=== PATIENT | female | born 1945 | race Asian ===

== ENCOUNTER 2020-05-08 10:40 | Emergency (ER) | payer MEDICARE, MEDICAID ==
[~2020-05-08] VITALS: Ht 148.6 cm; Wt 53.8 kg
[2020-05-08 10:57] VITALS: BP 174/70
== END 2020-05-08 11:53 | disposition home or self-care (01) ==
LOC: ER 10:40
DX: H61.21 Impacted cerumen, right ear (principal)
CPT/HCPCS: 69210; 99284

== ENCOUNTER 2023-06-23 09:05 | Emergency (ER) | payer MEDICARE, MEDICAID ==
[~2023-06-23] VITALS: Ht 154.9 cm; Wt 52.8 kg
[2023-06-23 12:01] VITALS: BP 175/75; PULSE 56; RESP 17; TEMP 97.9; O2SAT 97
[2023-06-23] MEDS ORDERED: BLEOS EACHEYE (14:56)
[2023-06-23] MEDS ORDERED: CEPH-585 PO (14:56)
== END 2023-06-23 17:21 | disposition home or self-care (01) ==
LOC: ER 09:05
DX: H01.00B Unspecified blepharitis left eye, upper and lower eyelids (principal); H01.00A Unspecified blepharitis right eye, upper and lower eyelids; Z87.81 Personal history of (healed) traumatic fracture; Z79.2 Long term (current) use of antibiotics; Z79.899 Other long term (current) drug therapy
CPT/HCPCS: 99283

== ENCOUNTER 2023-06-30 13:19 | Emergency (ER) | payer MEDICARE, MEDICAID ==
[~2023-06-30] VITALS: Ht 160 cm; Wt 52.4 kg
[~2023-06-30 13:19] MED LIST: BLEOS EACHEYE; CEPH-585 PO
[2023-06-30] MEDS ORDERED: DOXY-457 PO (17:00)
[2023-06-30] MEDS ORDERED: PRED20TA PO (17:00)
[2023-06-30 17:45] VITALS: BP 162/82; PULSE 60; RESP 16; TEMP 98; O2SAT 98
== END 2023-06-30 17:48 | disposition home or self-care (01) ==
LOC: ER 13:20
DX: H01.00B Unspecified blepharitis left eye, upper and lower eyelids (principal); H01.00A Unspecified blepharitis right eye, upper and lower eyelids; Z79.2 Long term (current) use of antibiotics; Z79.899 Other long term (current) drug therapy
CPT/HCPCS: 99283

== ENCOUNTER 2023-11-10 08:38 | Emergency (ER) | payer MEDICARE, MEDICAID ==
[~2023-11-10] VITALS: Ht 154.9 cm; Wt 52.4 kg
[~2023-11-10 08:38] MED LIST changes: -BLEOS EACHEYE
[2023-11-10 09:01] VITALS: TEMP 98.6
[2023-11-10 09:42] VITALS: BP 151/79; PULSE 63; RESP 16; O2SAT 98
[2023-11-10] MEDS ORDERED: TRIA15CR62 TP (10:51)
== END 2023-11-10 11:26 | disposition home or self-care (01) ==
LOC: ER 08:38
DX: L23.9 Allergic contact dermatitis, unspecified cause (principal)
CPT/HCPCS: 99283